=== PATIENT | male | born 1935 | race Caucasian/White ===

== ENCOUNTER 2018-07-02 09:03 | Emergency (ER) | payer MEDICARE ==
--- NOTE | 2018-07-02 09:20 | ER Document Report ---
ED General - General Stated Complaint: DIARRHEA/COLD Time Seen by Provider: 07/02/18 09:10 Primary Care Provider: JABIER TOPETE NP [NO LOCAL MD] - Follow up in 3-5 days Notes: Patient is a 83-year-old male that presents to the emergency department for chief complaint of diarrhea after taking antibiotics. Patient reports his been having cough and congestion for about 1 week, decreased appetite, occasional vomiting. He went to urgent care yesterday, and was started on amoxicillin, and Mucinex, and late last night, started having continuous watery diarrhea, multiple episodes, states occasionally did make it to the bathroom. He denies having any associated abdominal pain, denies having any nausea at this time. He believes the diarrhea has subsided, as he does not feel the urge to go at this time. He still is having a cough, with sinus congestion, but denies having any fevers, chills, night sweats, chest pain, shortness of breath or difficulty breathing. Past Medical History: BPH, peripheral neuropathy Past Surgical History: Appendectomy Social History: Denies tobacco, alcohol or illicit drug use. Family History: Reviewed and noncontributory for presenting illness Allergies: Reviewed, see documented allergy list. REVIEW OF SYSTEMS: Other than noted above, the 12 point review of systems was reviewed with the patient and were negative, all pertinent findings are included in the HPI. PHYSICAL EXAMINATION: Vital signs reviewed, nursing noted reviewed. GENERAL: Elderly male, no acute distress HEAD: Atraumatic, normocephalic. EYES: Eyes appear normal, extraocular movements intact, sclera anicteric, conjunctiva are normal. ENT: nares patent, oropharynx clear without exudates. Moist mucous membranes. NECK: Normal range of motion, supple without lymphadenopathy LUNGS: Breath sounds clear to auscultation bilaterally and equal. No wheezes rales or rhonchi. HEART: Regular rate and rhythm without murmurs ABDOMEN: Soft, nontender, normoactive bowel sounds. No rebound, guarding, or rigidity. No masses appreciated. EXTREMITIES: Nontender, good range of motion, no pitting or edema. NEUROLOGICAL: No focal neurological deficits. Moves all extremities spontaneously Motor and sensory grossly intact on exam. PSYCH: Normal mood, normal affect. SKIN: Warm, Dry, normal turgor, no rashes or lesions noted on exposed skin TRAVEL OUTSIDE OF THE [place] IN LAST 30 DAYS: No - Related Data Allergies/Adverse Reactions: terazosin [Terazosin] Allergy (Unknown, Verified 08/18/15 18:52) Uiawdnl-Yok-Yxv Reductase Inhibitor Allergy (Verified 08/18/15 18:52) Past Medical History - Social History Smoking Status: Never Smoker Family History: Reviewed & Not Pertinent - Past Medical History Cardiac Medical History: Reports: Hx Hypercholesterolemia, Hx Hypertension Pulmonary Medical History: Reports: Hx Pneumonia Denies: Hx Tuberculosis Neurological Medical History: Denies: Hx Seizures Renal/ Medical History: Reports: Hx Benign Prostatic Hyperplasia GI Medical History: Reports: Hx Gastroesophageal Reflux Disease, Hx Hiatal Hernia Past Surgical History: Reports: Hx Appendectomy, Hx Orthopedic Surgery - Left knee meniscus repair, Hx Tonsillectomy - Including adenoids. Denies: Hx Pacemaker - Immunizations Hx Diphtheria, Pertussis, Tetanus Vaccination: Yes Hx Pneumococcal Vaccination: 09/18/10 Physical Exam - Vital signs Vitals: Temp Pulse Resp BP Pulse Ox 97.8 F 81 18 142/67 H 92 07/02/18 09:04 07/02/18 09:04 07/02/18 09:04 07/02/18 09:04 07/02/18 09:04 Course - Re-evaluation Re-evalutation: Patient seen and examined vital signs reviewed. Laboratory data and imaging were ordered as appropriate for the patient's presenting symptoms and complaint, with consideration of any critical or life threatening conditions that may be associated with their obtained history and exam as noted above. Patient was treated with IV fluids and zofran Results were reviewed when available and demonstrated mild hyponatremia and hypokalemia, and mild thrombocytopenia, otherwise unremarkable, no acute kidney injury or other signs of significant dehydration. CXR negative for pneumonia The patient was re-evaluated and was feeling much improved, no further episodes of diarrhea, and nausea was resolved. Evaluation was most consistent with diarrhea and URI, I suspect his diarrhea is from antibiotic use that was prescribed for what is most likely a viral uri with post nasal drip. I advised discontinuing the antibiotic as at this point it would cause more harm in this patient. He is instead given a prescription for zofran and flonase and advise to follow-up with PCP. Results were discussed with the patient at this point, after careful consid eration I feel that that patient can be discharged from the emergency department, the patient was educated treatments and reasons to return to the emergency department based on their presumed diagnosis as noted above, they were advised to followup with a primary care physician in 2-3 days. Patient was agreeable to plan of care. *Note is created using voice recognition software and may contain spelling, syntax or grammatical errors. Laboratory 07/02/18 07/02/18 09:34 09:34 WBC 10.2 RBC 4.54 Hgb 15.4 Hct 42.7 MCV 94 MCH 34.0 H MCHC 36.1 H RDW 13.1 Plt Count 121 L Seg Neutrophils % 84.9 H Lymphocytes % 7.3 L Monocytes % 7.7 Eosinophils % 0.0 Basophils % 0.1 Absolute Neutrophils 8.7 H Absolute Lymphocytes 0.7 Absolute Monocytes 0.8 Absolute Eosinophils 0.0 Absolute Basophils 0.0 Sodium 135.6 L Potassium 3.3 L Chloride 100 Carbon Dioxide 27 Anion Gap 9 BUN 16 Creatinine 0.99 Est GFR ( Amer) > 60 Est GFR (Non-Af Amer) > 60 Glucose 153 H Calcium 8.6 Chest X-Ray 07/02/18 09:20 IMPRESSION: NO ACUTE RADIOGRAPHIC FINDING IN THE CHEST. - Vital Signs Vital signs: Temp Pulse Resp BP Pulse Ox 97.8 F 81 18 149/69 H 92 07/02/18 09:04 07/02/18 09:04 07/02/18 09:04 07/02/18 11:01 07/02/18 11:01 - Laboratory Result Diagrams: 07/02/18 09:34 07/02/18 09:34 Laboratory results interpreted by me: 07/02/18 07/02/18 09:34 09:34 MCH 34.0 H MCHC 36.1 H Plt Count 121 L Seg Neutrophils % 84.9 H Lymphocytes % 7.3 L Absolute Neutrophils 8.7 H Sodium 135.6 L Potassium 3.3 L Glucose 153 H Discharge - Discharge Clinical Impression: Hyponatremia, Hypokalemia Diarrhea Qualifiers: Diarrhea type: unspecified type Qualified Code(s): R19.7 - Diarrhea, unspecified URI (upper respiratory infection) Qualifiers: URI type: unspecified URI Qualified Code(s): J06.9 - Acute upper respiratory infection, unspecified Condition: Stable Disposition: HOME, SELF-CARE Instructions: Diarrhea, Nonspecific ([facility]), Upper Respiratory Illness ([facility]) Additional Instructions: Your diarrhea was most likely because by the antibiotics you are on, I recommend discontinuing these antibiotics, you do have an upper respiratory tract infection, which is causing nasal congestion, and what is called postnasal drip which is leading to your cough. Your chest x-ray was negative for pneumonia. I recommend using Flonase to help with your postnasal drip, and your upper respiratory tract infection symptoms. He did not require antibiotics at this time, your blood work did not demonstrate signs of a severe infection. Encourag e you to stay hydrated as much as possible, you have been prescribed a medication for nausea, to help stimulate some of your diet, please take this once or twice daily, before you plan on eating meals. Prescriptions: Fluticasone Propionate [Flonase Nasal Robeline 50 Mcg/Robeline 16 gm] 1 spray NASL Q12 #1 inhaler Ondansetron [Zofran Odt 4 mg Tablet] 1 tab PO Q8H PRN #15 tab.rapdis PRN Reason: For Nausea/Vomiting Referrals: JABIER TOPETE NP [NO LOCAL MD] - Follow up in 3-5 days
[2018-07-02] MEDS ORDERED: NORMAL SALINE 1000 ML 1,000 ML IV ONE (09:22)
[2018-07-02 10:26] LABS: ANION GAP 9 (5-19); BLOOD UREA NITROGEN 16 mg/dL (7-20); CALCIUM 8.6 mg/dL (8.4-10.2); CARBON DIOXIDE 27 mmol/L (22-30); CHLORIDE 100 mmol/L (98-107); GLUCOSE 153 mg/dL (75-110); POTASSIUM 3.3 mmol/L (3.6-5.0); SODIUM 135.6 mmol/L (137-145)
[2018-07-02] MEDS ORDERED: POTASSIUM CHLORIDE 10 MEQ CAPSULE.ER PO ONE (10:28)
[2018-07-02 10:33] LABS: ABSOLUTE LYMPHOCYTES (AUTO) 0.7 10^3/uL (0.5-4.7); ABSOLUTE MONOCYTES (AUTO) 0.8 10^3/uL (0.1-1.4); ABSOLUTE NEUT (AUTO) 8.7 10^3/uL (1.7-8.2); BASOPHILS % (AUTO) 0.1 % (0-2); HEMATOCRIT 42.7 % (37.9-51.0); HEMOGLOBIN 15.4 g/dL (13.5-17.0); LYMPHOCYTES % (AUTO) 7.3 % (13-45); MEAN CORPUSCULAR HGB CONC 36.1 g/dL (32.0-36.0); MEAN CORPUSCULAR VOLUME 94 fl (80-97); MONOCYTES % (AUTO) 7.7 % (3-13); PLATELET COUNT 121 10^3/uL (150-450); RED BLOOD COUNT 4.54 10^6/uL (4.35-5.55); RED CELL DISTRIBUTION WIDTH 13.1 % (11.5-14.0); SEGMENTED NEUTROPHILS % (AUTO) 84.9 % (42-78); TOTAL CELLS COUNTED % (AUTO) 100 %; WHITE BLOOD COUNT 10.2 10^3/uL (4.0-10.5)
--- NOTE | 2018-07-02 10:33 | RADIOLOGY REPORT (SQ) ---
EXAM DESCRIPTION: CHEST SINGLE VIEW COMPLETED DATE/TIME: 07/02/2018 10:02 am REASON FOR STUDY: COUGH COMPARISON: None. EXAM PARAMETERS: NUMBER OF VIEWS: One view. TECHNIQUE: Single frontal radiographic view of the chest acquired. RADIATION DOSE: NA LIMITATIONS: None. FINDINGS: LUNGS AND PLEURA: No opacities, masses or pneumothorax. No pleural effusion. MEDIASTINUM AND HILAR STRUCTURES: No masses. Contour normal. HEART AND VASCULAR STRUCTURES: Heart normal in size. Normal vasculature. BONES: No acute findings. HARDWARE: None in the chest. OTHER: No other significant finding. IMPRESSION: NO ACUTE RADIOGRAPHIC FINDING IN THE CHEST. TECHNICAL DOCUMENTATION: JOB ID: [id number] [employer]- All Rights Reserved Reading location - IP/workstation name: [email or web address]
[2018-07-02 11:20] VITALS: BP 149/69
== END 2018-07-02 11:55 | disposition home or self-care (01) ==
LOC: ER 09:03
DX: E87.1 Hypo-osmolality and hyponatremia (principal); E87.6 Hypokalemia; J06.9 Acute upper respiratory infection, unspecified; R19.7 Diarrhea, unspecified; R05 Cough; R09.81 Nasal congestion; R63.0 Anorexia; R11.10 Vomiting, unspecified; I10 Essential (primary) hypertension
CPT/HCPCS: 99284; 96360; 36415; 85025; 80048; 71045; J7030; A9270

== ENCOUNTER 2019-09-25 13:37 | Emergency (ER) | payer MEDICARE ==
--- NOTE | 2019-09-25 14:27 | ER Document Report ---
ED Cardiac - General Chief Complaint: Chest Pain Stated Complaint: CHEST PAIN Time Seen by Provider: 09/25/19 14:26 Primary Care Provider: AQUILINO DURHAM FNP-C [NURSE PRACTITIONER] - Follow up as needed Mode of Arrival: Ambulatory Information source: Patient Notes: This is an 84-year-old male presenting to the emergency department with intermittent chest pain over the last month. He reports it feels like a chest discomfort. He states that he usually attributed to acid reflux, he takes acid reflux medications that usually makes the chest pain go away. He denies any radiation of the chest discomfort or any nausea or diaphoresis. He does report intermittent shortness of breath. He has not seen his medical provider for his complaints today. He wanted to be checked out to make sure that he was not having a heart attack. TRAVEL OUTSIDE OF THE [place] IN LAST 30 DAYS: No - Related Data Allergies/Adverse Reactions: terazosin [Terazosin] Allergy (Unknown, Verified 09/25/19 15:00) Hexauqd-Suw-Sgr Reductase Inhibitor Allergy (Verified 09/25/19 15:00) Past Medical History - General Information source: Patient - Social History Smoking Status: Never Smoker Family History: Reviewed & Not Pertinent - Past Medical History Cardiac Medical History: Reports: Hx Hypercholesterolemia, Hx Hypertension Pulmonary Medical History: Reports: Hx Pneumonia Denies: Hx Tuberculosis Neurological Medical History: Denies: Hx Seizures Renal/ Medical History: Reports: Hx Benign Prostatic Hyperplasia. Denies: Hx Peritoneal Dialysis GI Medical History: Reports: Hx Gastroesophageal Reflux Disease, Hx Hiatal Hernia Past Surgical History: Reports: Hx Appendectomy, Hx Orthopedic Surgery - Left knee meniscus repair, Hx Tonsillectomy - Including adenoids. Denies: Hx Pacemaker - Immunizations Hx Diphtheria, Pertussis, Tetanus Vaccination: Yes Hx Pneumococcal Vaccination: 09/18/10 Review of Systems - Review of Systems Constitutional: No symptoms reported EENT: No symptoms reported Cardiovascular: Chest pain Respiratory: Short of breath Gastrointestinal: No symptoms reported Genitourinary: No symptoms reported Male Genitourinary: No symptoms reported Musculoskeletal: No symptoms reported Skin: No symptoms reported Hematologic/Lymphatic: No symptoms reported Neurological/Psychological: No symptoms reported Physical Exam - Vital signs Vitals: Temp 97.9 F 09/25/19 13:49 - Notes Notes: PHYSICAL EXAMINATION: GENERAL: Well-appearing, well-nourished, appears younger than stated age and in no acute distress. HEAD: Atraumatic, normocephalic. EYES: Pupils equal round and reactive to light, extraocular movements intact, sclera anicteric, conjunctiva are normal. ENT: Nares patent, oropharynx clear without exudates. Moist mucous membranes. NECK: Normal range of motion, supple without lymphadenopathy LUNGS: Breath sounds clear to auscultation bilaterally and equal. No wheezes rales or rhonchi. HEART: Regular rate and rhythm without murmurs ABDOMEN: Soft, nontender, nondistended abdomen. No guarding, no rebound. No masses appreciated. Musculoskeletal: Normal range of motion, no pitting or edema. No cyanosis. NEUROLOGICAL: Cranial nerves grossly intact. Normal speech, normal gait. Normal sensory, motor exams PSYCH: Normal mood, normal affect. SKIN: Warm, Dry, normal turgor, no rashes or lesions noted. Course - Re-evaluation Re-evalutation: Presentation of chest pain in an otherwise well appearing patient. Low clinical suspicion for ACS given clinical history, exam, EKG without ST elevations or dep ressions, and negative initial troponin. HEART score less than or equal to 3. PE also seems unlikely given clinical history, absence of tachycardia or dyspnea. Patient is PERC criteria negative. CXR without evidence of pneumothorax or pneumonia. No widened mediastinum. Aortic dissection also seems unlikely given history, symmetric pulses, CXR, and vitals. Chest pain in a patient without evidence of cardiac or other serious etiology on workup today. I discussed with patient that, based on their age, risk factors and emergency department testing today, the likelihood that their symptoms are related to a heart attack is very low (estimated risk of heart attack or over the next 30 days of less than 1%). The patient demonstrates decision making capacity and has verbalized an understanding of these risks to me. Based on this, the patient has chosen to follow-up as an outpatient. Usual chest pain return precautions reviewed. The patient states understanding and agreement with this plan. - Vital Signs Vital signs: Temp Pulse Resp BP Pulse Ox 97.9 F 26 H 172/85 H 93 09/25/19 13:49 09/25/19 18:01 09/25/19 18:01 09/25/19 18:01 - Laboratory Result Diagrams: 09/25/19 14:34 09/25/19 14:34 Laboratory results interpreted by me: 09/25/19 09/25/19 14:34 14:34 MCH 34.4 H Anion Gap 4 L - Diagnostic Test Radiology reviewed: Image reviewed, Reports reviewed - EKG Interpretation by Me EKG shows normal: Sinus rhythm Rate: Normal Rhythm: NSR - No ST segment elevations or depressions to suggest ischemia. When compared to previous EKG there are: No significant change Discharge - Discharge Clinical Impression: Chest pain Qualifiers: Chest pain type: unspecified Qualified Code(s): R07.9 - Chest pain, unspecified Condition: Stable Disposition: HOME, SELF-CARE Additional Instructions: You were seen today for chest pain. The exact cause of your pain is unclear. However, based on your cardiac enzyme testing, chest x-ray, and EKG it does not appear that it is from an immediately life-threatening cause at this time. Although your testing here is normal is critical that you follow-up with your primary care physician for continued evaluation of this chest pain and possible stress testing. I recommended you see your physician within the next 24-48 hours to be evaluated for consideration of a stress test. Please return to emergency department immediately if you have worsening of your chest pain, shortness of breath, vomiting, become unable to exert yourself due to pain or di fficulty breathing, you pass out, or have any pain that radiates into your arms, jaw, or back. Please also return if you have any additional symptoms that are concerning to you. Referrals: AQUILINO DURHAM FNP-C [NURSE PRACTITIONER] - Follow up as needed
--- NOTE | 2019-09-25 14:41 | EKG REPORT ---
SEVERITY:- ABNORMAL ECG - SINUS RHYTHM FIRST DEGREE AV BLOCK : Confirmed by: Tammie Capone MD 25-Sep-2019 14:41:09
[2019-09-25 14:55] LABS: ABSOLUTE EOSINOPHILS # (AUTO) 0.1 10^3/uL (0.0-0.6); ABSOLUTE LYMPHOCYTES (AUTO) 1.1 10^3/uL (0.5-4.7); ABSOLUTE MONOCYTES (AUTO) 0.5 10^3/uL (0.1-1.4); ABSOLUTE NEUT (AUTO) 5.1 10^3/uL (1.7-8.2); BASOPHILS % (AUTO) 0.4 % (0-2); EOSINOPHILS % (AUTO) 2.2 % (0-6); HEMATOCRIT 43.3 % (37.9-51.0); HEMOGLOBIN 15.4 g/dL (13.5-17.0); LYMPHOCYTES % (AUTO) 16.1 % (13-45); MEAN CORPUSCULAR HEMOGLOBIN 34.4 pg (27.0-33.4); MEAN CORPUSCULAR HGB CONC 35.7 g/dL (32.0-36.0); MEAN CORPUSCULAR VOLUME 96 fl (80-97); MONOCYTES % (AUTO) 7.4 % (3-13); PLATELET COUNT 159 10^3/uL (150-450); RED BLOOD COUNT 4.49 10^6/uL (4.35-5.55); RED CELL DISTRIBUTION WIDTH 12.8 % (11.5-14.0); SEGMENTED NEUTROPHILS % (AUTO) 73.9 % (42-78); TOTAL CELLS COUNTED % (AUTO) 100 %; WHITE BLOOD COUNT 6.8 10^3/uL (4.0-10.5)
[2019-09-25 15:14] LABS: ALBUMIN 3.7 g/dL (3.5-5.0); ALKALINE PHOSPHATASE 50 U/L (38-126); ASPARTATE AMINO TRANSFERASE 28 U/L (17-59); BILIRUBIN,TOTAL 0.7 mg/dL (0.2-1.3); BLOOD UREA NITROGEN 16 mg/dL (7-20); CALCIUM 9.3 mg/dL (8.4-10.2); CARBON DIOXIDE 28 mmol/L (22-30); CREATINE KINASE 61 U/L (55-170); GLUCOSE 108 mg/dL (75-110); POTASSIUM 4.2 mmol/L (3.6-5.0); TOTAL PROTEIN 6.3 g/dL (6.3-8.2)
--- NOTE | 2019-09-25 15:15 | RADIOLOGY REPORT (SQ) ---
EXAM DESCRIPTION: CHEST SINGLE VIEW IMAGES COMPLETED DATE/TIME: 09/25/2019 3:04 pm REASON FOR STUDY: chest pain COMPARISON: 07/02/2018 EXAM PARAMETERS: NUMBER OF VIEWS: One view. TECHNIQUE: Single frontal radiographic view of the chest acquired. RADIATION DOSE: NA LIMITATIONS: None. FINDINGS: LUNGS AND PLEURA: No opacities, masses or pneumothorax. No pleural effusion. MEDIASTINUM AND HILAR STRUCTURES: No masses. Contour normal. HEART AND VASCULAR STRUCTURES: Heart normal in size. Normal vasculature. BONES: No acute findings. HARDWARE: None in the chest. OTHER: No other significant finding. IMPRESSION: NO ACUTE RADIOGRAPHIC FINDING IN THE CHEST. TECHNICAL DOCUMENTATION: JOB ID: [id number] [employer]- All Rights Reserved Reading location - IP/workstation name: [email or web address]
[2019-09-25 15:19] LABS: CHLORIDE 106 mmol/L (98-107)
[2019-09-25 15:22] LABS: ANION GAP 4 (5-19)
[2019-09-25 15:23] LABS: CREATINE KINASE MB 1.71 ng/mL (<4.55)
[2019-09-25 15:29] LABS: TROPONIN I < 0.012 ng/mL
[2019-09-25 18:57] VITALS: BP 172/85
== END 2019-09-25 18:59 | disposition home or self-care (01) ==
LOC: ER 13:37
DX: R07.9 Chest pain, unspecified (principal); R06.02 Shortness of breath; E78.00 Pure hypercholesterolemia, unspecified; I10 Essential (primary) hypertension
CPT/HCPCS: 36415; 71045; 80053; 82550; 82553; 83036; 83880; 84484; 85025; 93005; 93010; 99285